=== PATIENT | female | born 1965 | race Caucasian/White ===

== ENCOUNTER → 2017-01-09 | Outpatient (CLI) | payer OTHER ==
[~2017-01-09] MED LIST: IRON PO; LISINOPRIL5 MG PO
== END | disposition home or self-care (01) ==
LOC: US 14:45 → MAMMO 16:00
DX: Z12.31 Encounter for screening mammogram for malignant neoplasm of breast (principal); R10.2 Pelvic and perineal pain; R10.32 Left lower quadrant pain; N83.201 Unspecified ovarian cyst, right side; D25.9 Leiomyoma of uterus, unspecified

== ENCOUNTER → 2017-01-25 | Outpatient (CLI) | payer OTHER ==
[~2017-01-25] MED LIST changes: +ALEVE220 MG PO; +METFORMIN500 MG PO; +VISTARIL25 MG PO
== END | disposition home or self-care (01) ==
LOC: MAMMO 11:00 → US 11:00 → MAMMO 11:14
DX: R92.2 Inconclusive mammogram (principal)

== ENCOUNTER → 2017-02-02 | Day surgery (SDC) | payer OTHER ==
[~2017-02-02] VITALS: Ht 165.1 cm; Wt 138.3 kg
--- NOTE | ~2017-02-02 | PROC NOTE ---
[place], [place] PROCEDURE NOTE NAME: RAGHAV JUAREZ UNIT #: [id number] ROOM: DOCTOR: ANTHONY CAR MD BIRTHDATE: [birth year] DOS: 02/02/2017 PREOPERATIVE DIAGNOSES: History of previous polypectomy, lower gastrointestinal bleed. POSTOPERATIVE DIAGNOSIS: Normal colon. PROCEDURE: Colonoscopy. ENDOSCOPIST: Anthony Car M.D. MONEY ROOM TELLER: PADMA. ANESTHESIA: MAC. INDICATIONS: This is a 51-year-old lady who is here for a colonoscopy. She has had a history of intermittent lower GI bleed with positive Hemoccult stool as well as previous colonoscopy a year ago, which showed benign polyps. The procedure and its complications were explained to the patient in detail preoperatively. Complications that were discussed included but were not limited to bleeding, missed lesions, colon perforation, and prolonged pain. She agreed to proceed. DESCRIPTION OF PROCEDURE: After identifying the patient, the patient was brought to the endoscopy suite and placed in the left lateral position. A digital rectal exam was performed after IV sedation was administered and a time-out procedure was called. This was within normal limits. An adult colonoscope was now introduced into the anal canal and advanced sequentially into the rectum, sigmoid colon, descending colon, transverse colon and ascending colon up to the cecum. The prep was found to be normal. Upon reaching the cecum, the scope was withdrawn. The colon was found to be completely normal. There were no polyps that could be identified. There were no areas of inflammation, no bleeding that could be identified. The scope was completely removed and the patient was then taken to the recovery room in stable fashion. There were no complications. Based on these findings, the patient was recommended to have another colonoscopy in 10 years or sooner if she had new symptoms or continued bleeding. These findings were conveyed to the patient's friend who is going to be taking her home today. I will talk to the patient ____ in the postoperative recovery room. [place], [place] PROCEDURE NOTE NAME: RAGHAV JUAREZ UNIT #: [id number] ROOM: DOCTOR: ANTHONY CAR MD BIRTHDATE: [birth year] Anthony Car MD CM:PROCNOTE:PROCEDURE NOTE [id number] ANTHONY CAR MD
[2017-02-02 08:05] VITALS: BP 171/78
[2017-02-02 08:26] VITALS: BP 119/68
[2017-02-02 08:40] VITALS: BP 120/58
[2017-02-02 08:52] VITALS: BP 137/90
== END | disposition home or self-care (01) ==
LOC: SDC 02-01 11:45
DX: K92.2 Gastrointestinal hemorrhage, unspecified (principal); Z87.19 Personal history of other diseases of the digestive system; I10 Essential (primary) hypertension; F41.9 Anxiety disorder, unspecified; Z98.51 Tubal ligation status; Z98.890 Other specified postprocedural states; Z80.9 Family history of malignant neoplasm, unspecified; Z82.49 Family history of ischemic heart disease and other diseases of the circulatory system

== ENCOUNTER → 2017-03-28 | Outpatient (CLI) | payer OTHER | END | disposition home or self-care (01) | LOC: US 13:30 | DX: N83.201 Unspecified ovarian cyst, right side (principal) ==

== ENCOUNTER 2019-05-01 22:16 | Emergency (ER) | payer BC ==
[~2019-05-01] VITALS: Ht 165.1 cm; Wt 136.1 kg
[2019-05-01] MEDS ORDERED: ZOFRAN4 MG PO (23:55)
[2019-05-01] MEDS ORDERED: LEVAQUIN750 M1 PO (23:55)
== END 2019-05-02 00:41 | disposition home or self-care (01) ==
LOC: ED 22:16
DX: J18.9 Pneumonia, unspecified organism (principal); I10 Essential (primary) hypertension; F41.9 Anxiety disorder, unspecified

== ENCOUNTER → 2019-05-27 | Outpatient (CLI) | payer BC ==
[~2019-05-27] MED LIST changes: +LEVAQUIN750 M1 PO; +ZOFRAN4 MG PO
== END | disposition home or self-care (01) ==
LOC: RAD 10:52
DX: J18.9 Pneumonia, unspecified organism (principal)